=== PATIENT | female | born 1995 | race Two or more races ===

== ENCOUNTER → 2020-08-25 | Outpatient (CLI) | payer SELFPAY | END | disposition home or self-care (01) | LOC: EEVIPCON → CANPRECLI → OIH 08-22 10:00 → EEVIPCON 12:40 → OIH 12:40 | PROVIDERS: ATTEND Internal Medicine Cardiovascular Disease | DX: I25.10 Atherosclerotic heart disease of native coronary artery without angina pectoris (principal) | CPT/HCPCS: 93306; 93356 ==